=== PATIENT | female | born 1975 | race Caucasian/White ===

== ENCOUNTER 2016-09-12 18:58 | Emergency (ER) | payer OTHER ==
[2016-09-12] MEDS ORDERED: HYDROCODONE/ACETAMINOPHEN 5/325MG TABLET ONE (20:55)
== END 2016-09-12 21:00 | disposition home or self-care (01) ==
LOC: ED 18:58
DX: J06.9 Acute upper respiratory infection, unspecified (principal); H92.01 Otalgia, right ear; J45.909 Unspecified asthma, uncomplicated